=== PATIENT | female | born 1955 | race Two or more races ===

== ENCOUNTER 2018-05-21 06:02 | Inpatient (IN) | payer MEDICARE, OTHER ==
[2018-05-21] VITALS (14 sets, daily range): BP systolic 107–162; BP diastolic 54–78
[~2018-05-21] VITALS: Ht 162.6 cm; Wt 86.2 kg
[~2018-05-21 06:02] MED LIST: FEMARA2.5 MG ORAL; IBRANCE125 MG PO; SYNTHROID175 MCG ORAL
[2018-05-21] MEDS ORDERED: NeoSporin Gu Irrig 1ml Amp IRRIG ONE (07:01)
[2018-05-21] MEDS ORDERED: Bacitracin 50000 Units Vial ONE (07:01)
[2018-05-21] MEDS ORDERED: Lidocaine 1% MPF 10mg/ml 5ml ONE (07:15)
[2018-05-21] MEDS ORDERED: Propofol 200mg/20ml IV ONE (07:15)
[2018-05-21] MEDS ORDERED: Duramorph PF 5mg/10ml amp ONE (07:19)
[2018-05-21] MEDS ORDERED: Zemuron 50mg/5ml Inj IV ONE (07:19)
[2018-05-21] MEDS ORDERED: ePHEDrine 50mg/ml Inj ONE (07:23)
[2018-05-21] MEDS ORDERED: Phenylephrine 10mg/ml Vial ONE (07:23)
[2018-05-21] MEDS ORDERED: fentaNYL 100 mcg/2 mL IV ONE (07:25)
[2018-05-21] MEDS ORDERED: Midazolam 2mg/2ml Inj ONE (07:25)
--- NOTE | 2018-05-21 07:30 | Anethesia Preoperative Eval ---
Anesthesia Pre-op PMH/ROS General Date of Evaluation: May 21, 2018 Time of Evaluation: 07:25 Anesthesiologist: Janice Lin. 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 PROGRAM MANAGER ASA Score: ASA 2 Mallampati Score Class I : Soft palate, uvula, fauces, pillars visible Class II: Soft palate, uvula, fauces visible Class III: Soft palate, base of uvula visible Class IV: Only hard plate visible Mallampati Classification: Class II Surgeon: Hao Diagnosis: LEFT hip osteoarthritis Surgical Procedure: LEFT total hip replacement Anesthesia History: none Family History: no anesthesia problems Allergies: Coded Allergies: No Known Allergies (Unverified , 05/21/18) Patient NPO?: Yes NPO Date: May 19, 2018 NPO Time: 1999 Past Medical History Cardiovascular: Denies: HTN, CAD, NE, valve dz, arrhythmia, other Pulmonary: Denies: asthma, COPD, LESA, other Gastrointestinal/Genitourinary: Denies: GERD, CRI, ESRD, other Neurologic/Psychiatric: Denies: dementia, CVA, depression/anxiety, TIA, other Endocrine: Reports: hypothyroidism; Denies: DM, steroids, other HEENT: Denies: cataract (L), cataract (R), glaucoma, [place] (L), [place] (R), other Hematology/Immune: Denies: anemia, DVT, bleeding disorder, other Musculoskeletal/Integumentary: Reports: OA, other - Breast CA s/p mastectomy; Denies: RA, DJD, DDD, edema Other: obesity PMH Narrative: as noted above PSxH Narrative: thyroidectomy, RIGHT mastectomy, lap priscila Anesthesia Pre-op Phys. Exam Physician Exam Last Vital Signs Date Time Temp Pulse Resp B/P (MAP) Pulse Ox O2 Delivery O2 Flow Rate FiO2 05/21/18 06:30 Room Air 05/21/18 06:28 97.5 75 18 107/61 (76) 97 Constitutional: NAD Neurologic: other - alert & oriented Cardiovascular: RRR Respiratory: CTA Gastrointestinal: S/NT/ND Airway Exam Mallampati Score: Class II Neck: FROM TMD: > 3 FB ROM: full Teeth: intact Dentures: no upper, no lower Anesthesia Pre-op A/P Labs in chart, reviewed, T & C 2 units PRBC Studies Pre-op Studies: EKG - NSR Risk Assessment & Plan Assessment: ASA 2, ok to proceed Plan: GA, spinal Status Change Before Surgery: No Pre-Antibiotics Drug: Janice Stone CRNA May 21, 2018 07:30
--- NOTE | 2018-05-21 07:48 | Pre-Procedure Note/Attestation ---
Pre-Procedure Note/Attestation Complete Prior to Procedure Planned Procedure: left Procedure Narrative: left hip replacement Indications for Procedure Pre-Operative Diagnosis: left hip athritis Attestation I attest that I discussed the nature of the procedure; its benefits; risks and complications; and alternatives (and the risks and benefits of such alternatives ), prior to the procedure, with the patient (or the patient's legal representative phlebotomy services). I attest that, if there was a reasonable possibility of needing a blood transfusion, the patient (or the patient's legal representative phlebotomy services) was given the [facility] standardized written summary, pursuant to the [place] Blood Safety Act ([place] Health and Safety Code # 1645, as amended). I attest that I re-evaluated the patient just prior to the surgery and that there has been no change in the patient's H&P, except as documented below: Gregory Amanda MD May 21, 2018 07:48
--- NOTE | 2018-05-21 07:50 | Brief Operative Note ---
Immediate Post Operative Note Operative Note Chief Complaint: left hip pain Pre-op Diagnosis: left hip athritis Procedure: left hip replacemen Post-op Diagnosis: lefthip arthritis Post-op Diagnosis: same as pre-op Findings: consistent w/pre-op dx studies Surgeon: [place] Anesthesia: general Specimen: yes Complications: none Condition: stable Fluids: yes Implant(s) used?: Yes Gregory Amanda MD May 21, 2018 07:49
[2018-05-21] MEDS ORDERED: LR 1000ml ONE (08:00)
[2018-05-21] MEDS ORDERED: NS Irrig 2000ml IRRIG ONE ×2 (08:00)
[2018-05-21] MEDS ORDERED: Sterile Water Irrig 1000ml IRRIG ONE (08:00)
[2018-05-21] MEDS ORDERED: Tranexamic Acid 1,000 MG in NS 65 ML IV ONE (08:30)
[2018-05-21] MEDS ORDERED: Metoclopramide 10mg/2ml Inj ONE (09:10)
[2018-05-21] MEDS ORDERED: DiphenhydrAMINE 50mg/ml Inj IVP PRN (09:30)
[2018-05-21] MEDS ORDERED: Hydromorphone 0.5mg/0.5ml inj IVP PRN (09:30)
--- NOTE | 2018-05-21 10:12 | Immediate Post-Op Evaluation ---
Immediate Post-Op Evalulation Immediate Post-Op Evalulation Procedure: LEFT total hip replacement Date of Evaluation: May 21, 2018 Time of Evaluation: 09:55 IV Fluids: LR 2000 ml Estimated Blood Loss: 300 ml Urinary Output: 150 ml Blood Pressure Systolic: 153 Blood Pressure Diastolic: 76 Pulse Rate: 82 Respiratory Rate: 22 O2 Sat by Pulse Oximetry: 100 Temperature (Fahrenheit): 97.3 Pain Score (1-10): 2 Nausea: No Vomiting: No Complications none Patient Status: awake, reacts, patent, extubated Hydration Status: adequate Drug: cefazolin Given Within 1 Hr of Incision: Yes Time Given: 08:25 Janice Lin CRNA May 21, 2018 10:12
--- NOTE | 2018-05-21 11:40 | NUR ---
NURSE NOTES: Patient arrived on unit via hospital bed. Patient is awake and able to verbalize needs. Stable and denies pain or SOB. Daughter is at bedside. IV patent, no s/s infiltration or phlebitis noted. Patient is on room air, 97% oxygen saturation. Patient is encouraged to use call light for assistance, verbalized understanding. Surgical site clean, dry, and intact. All belongings accounted for. Abduction pillow in place. Oriented to room, call light, and unit. Plan of care discussed with patient. Patient is in good spirits, all safety measures provided. Will continue to monitor.
[2018-05-21] MEDS: D5 1/2NS w/KCl 20mEq 1,000 ML IV SCH (13:38)
--- NOTE | 2018-05-21 14:02 | Diagnostic Imaging Report ---
Indication: Hip and pelvic pain Technique: One view of the pelvis, 2 views of the left hip Comparison: none Findings: There is marked degenerative change of the left hip joint, with complete obliteration of the joint space, subchondral sclerosis, subchondral cysts, and remodeling of both the acetabulum and the femoral head. No acute fractures. No dislocations. The right hip joint appears unremarkable. Impression: Severe left hip degenerative change, as described
--- NOTE | 2018-05-21 15:00 | NUR ---
NURSE NOTES: Left [address] Vidal regarding home meds. Awaiting response. Will continue to monitor.
--- NOTE | 2018-05-21 19:26 | NUR ---
HAND-OFF: Report given to Sin STEVENS. Patient is stable.
--- NOTE | 2018-05-21 19:36 | Cardiology Progress Note ---
Subjective Subjective [id number] dvt xareltio 10 mg daily as of [facility]bc first d/w with dr morton who is agreeable Objective Last 24 Hour Vital Signs Date Time Temp Pulse Resp B/P (MAP) Pulse Ox O2 Delivery O2 Flow Rate FiO2 05/21/18 16:00 97.5 71 19 115/60 (78) 98 05/21/18 12:40 97.7 65 18 112/54 (73) 95 05/21/18 11:40 97.7 84 18 109/74 (86) 97 05/21/18 11:30 97.5 73 18 130/62 97 Room Air 05/21/18 11:15 72 17 129/61 97 Room Air 05/21/18 11:00 97.4 71 18 128/60 98 Room Air 05/21/18 10:45 77 19 131/67 97 Room Air 05/21/18 10:30 78 20 140/68 98 Room Air 05/21/18 10:15 78 20 138/66 100 Simple Mask 6.0 05/21/18 10:12 82 22 100 05/21/18 10:05 79 19 162/67 100 Simple Mask 6.0 05/21/18 10:00 81 20 143/78 100 Simple Mask 6.0 05/21/18 09:55 97.3 82 22 153/76 100 Simple Mask 6.0 05/21/18 06:30 Room Air 05/21/18 06:28 97.5 75 18 107/61 (76) 97 Intake and Output 05/20/18 05/21/18 19:00 07:00 # Voids 1 Donald Vidal MD May 21, 2018 19:35
--- NOTE | 2018-05-21 20:05 | NUR ---
NURSE NOTES: Patient in bed awake and oriented. VSS. No SOB noted. Dressing is dry and intact with abduction pillows in place. Elias catheter draining well. IV site intact and able to tolerate IV fluids. Per patient no pain at this time. RT called for IS. Per Dr. Vidal hold home meds. No signs of distress noted. Needs attended. Call light within reach. In stable condition.
[2018-05-21 21:00] LABS: HEMOGLOBIN 10.5 G/DL (12.0-16.0); MEAN CORPUSCULAR VOLUME 92 FL (80-99); PLATELET COUNT 214 K/UL (150-450); RED BLOOD COUNT 3.48 M/UL (4.20-5.40); RED CELL DISTRIBUTION WIDTH 11.8 % (11.6-14.8); WHITE BLOOD COUNT 9.7 K/UL (4.8-10.8)
[2018-05-21] MEDS: HYDROcodone/Acetamin 10/325 tab ORAL PRN (23:15)
[2018-05-22] VITALS: BP 99/57
--- NOTE | 2018-05-22 00:30 | Consultation ---
DATE OF CONSULTATION: 05/21/2018 REFERRING PHYSICIAN: Gregory Amanda M.D. REASON FOR REFERRAL: Postoperative medical care. HISTORY OF PRESENT ILLNESS: This is a 62-year-old female who has a history of multiple medical problems as delineated below. The patient was admitted and has undergone a total knee replacement by Dr. Bui. I was asked to help manage postoperative medical care. The patient does not have any sore throat. Does not have any chest pain or shortness of breath. No PND. No orthopnea. Not had any orthopnea at home. No dyspnea on exertion. No palpitation. No dizziness on standing. She has not stood up postoperatively. She has been awake and responsive. PAST MEDICAL HISTORY: Positive for hypothyroidism, history of neoplasm of the breast on the right side. 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 Those medications have been withheld prior to the surgery and to be resumed after surgery. No diabetes. No high blood pressure. No history of heart attack. No stroke, hepatitis, tuberculosis, asthma, or emphysema. No ulcers. No kidney problems or liver problems. Only prior surgery has been mastectomy. SOCIAL HISTORY: She does not smoke or drink. Never did drug use. ALLERGIES: None. MEDICATIONS: Vitamin C, calcium carbonate, ferrous sulfate, vitamin D2, levothyroxine, letrozole, as part of her chemotherapy for her sacral lesion and those have been on hold, and [place]. REVIEW OF SYSTEMS: GASTROINTESTINAL: Negative. : She has a Elias catheter. PULMONARY: Denies. CONSTITUTIONAL: Denies. NEUROVASCULAR: Negative. PHYSICAL EXAMINATION: GENERAL: Shows to be a middle-aged female, in no respiratory distress. NECK: Supple. LUNGS: Clear to auscultation and percussion. CARDIAC: Showed S1 is normal. S2 is normal. Regular rate and rhythm. No heaves, thrills, gallops, or rubs are noted. ABDOMEN: Soft, obese, positive bowel sounds. EXTREMITIES: No edema. She has pneumatic compression stockings on the right with acute distress. No significant edema. NEUROLOGICAL: She is awake, alert, and responsive. LABS: No postoperative laboratories are available and her preop laboratories in the chart were reviewed with a glucose of 87, creatinine 0.73. INR 0.9. White count 3.2, hemoglobin 12.4, and platelet count 271. Urinalysis is fairly unremarkable. She has 2+ leukocyte esterase, 0-2 WBCs were noted. EKG, sinus rhythm. ASSESSMENT AND PLAN: 1. Status post hip replacement. 2. History of breast cancer. 3. History of coccygeal cancer of some kind. 4. Obesity. 5. Hypothyroidism. 6. This patient was seen in medical consultation. The patient is doing relatively well postoperatively. Incentive spirometer will be introduced. The patient to be receiving DVT prophylaxis with the use of ykv-nmzpnqmoe-quqdxu heparin. Relatively well postoperatively, hemodynamically she appears to be stable. Incentive spirometer to be used. DVT prophylaxis with the use of Xarelto at 10 mg daily for 35 days, to be started 10 hours post hemostasis. We will discuss timing of the start of that medication with Dr. Bui today, but hopefully by tomorrow she should be able to start on that medication if agreeable with Dr. Bui. She should be ambulating as allowed. Elias catheter will soon be removed tomorrow and the patient will be likely able to be discharged home over the next 2 to 3 days. Donald Vidal M.D. DR: Kael JOB#: [id number] CC:
[2018-05-22] MEDS: D5 1/2NS w/KCl 20mEq 1,000 ML IV SCH ×2 (02:36→16:50)
[2018-05-22] MEDS: Morphine Sulfate 2mg/ml Inj(IV/IM USE ONLY) IM PRN ×3 (06:20→18:50)
--- NOTE | 2018-05-22 06:59 | NUR ---
NURSE NOTES: Patient slept well during the night. Assisted patient to sit on the edge of the bed. Also ambulated on the room and the hallway using a FWW with RN assist. PRN pain medication given for 8/10 surgical pain. Assisted patient back to bed and placed Abduction pillow back in place. Patient in stable condition.
--- NOTE | 2018-05-22 07:15 | NUR ---
NURSE NOTES: Patient is asleep but arousable to verbal stimuli. Stable, denies pain or SOB. Patient encouraged to use call light for assistance. Abduction pillow in place. All needs met at this time. Patient comfortable in bed with call light within reach. Will continue to monitor.
[2018-05-22 08:00] VITALS: BP 107/59
--- NOTE | 2018-05-22 09:00 | NUR ---
NURSE NOTES: Reported lab values to Dr. Vidal. Ok to give gavi.
[2018-05-22 09:08] LABS: BASOPHILS % (AUTO) 0.3 % (0.0-2.0); EOSINOPHILS % (AUTO) 0.1 % (0.0-3.0); HEMATOCRIT 31.1 % (37.0-47.0); HEMOGLOBIN 10.2 G/DL (12.0-16.0); MEAN CORPUSCULAR VOLUME 93 FL (80-99); MONOCYTES % (AUTO) 9.2 % (1.0-10.0); NEUTROPHILS % (AUTO) 78.4 % (45.0-75.0); PLATELET COUNT 183 K/UL (150-450); RED BLOOD COUNT 3.34 M/UL (4.20-5.40); RED CELL DISTRIBUTION WIDTH 11.9 % (11.6-14.8); WHITE BLOOD COUNT 7.4 K/UL (4.8-10.8)
[2018-05-22 09:23] LABS: ANION GAP 5 mmol/L (5-15); BLOOD UREA NITROGEN 12 mg/dL (7-18); CALCIUM 8.1 MG/DL (8.5-10.1); CARBON DIOXIDE 29 MMOL/L (21-32); CHLORIDE 104 MMOL/L (98-107); CREATININE 0.8 MG/DL (0.55-1.30); POTASSIUM 4.6 MMOL/L (3.5-5.1); SODIUM 138 MMOL/L (136-145)
[2018-05-22] MEDS: Xarelto 10mg tab ORAL SCH (09:23)
[2018-05-22] MEDS ORDERED: Chloraseptic Spray 20mL Bottle ORAL PRN (09:45)
--- NOTE | 2018-05-22 09:52 | 48 Hour Post Anesthesia Eval ---
Post Anesthesia Evaluation Procedure: LEFT total hip replacement Date of Evaluation: May 22, 2018 Time of Evaluation: 09:51 Blood Pressure Systolic: 104 0: 72 Pulse Rate: 68 Respiratory Rate: 20 Temperature (Fahrenheit): 97.6 O2 Sat by Pulse Oximetry: 98 Airway: patent Nausea: No Vomiting: No Pain Intensity: 2 Hydration Status: adequate Cardiopulmonary Status: stable Mental Status/LOC: patient returned to baseline Follow-up Care/Observations: n/a Post-Anesthesia Complications: none Follow-up care needed: N/A Matt Pang MD May 22, 2018 09:52
[2018-05-22] MEDS: HYDROcodone/Acetamin 10/325 tab ORAL PRN (10:43)
[2018-05-22 12:00] VITALS: BP 114/60
--- NOTE | 2018-05-22 12:45 | Consultation ---
DATE OF CONSULTATION: 05/22/2018 CONSULTING PHYSICIAN: Boni Fernandez M.D. REFERRING PHYSICIAN: Gregory Amanda M.D. REASON FOR CONSULTATION: Acute pain consult. HISTORY OF PRESENT ILLNESS: Dear Dr. Amanda: Thank you kindly for consulting me to evaluate and render an opinion as to how to proceed in the management of the patient's acute postoperative left hip pain. The patient is a 62-year-old woman, who underwent left total hip replacement yesterday. She complained of significant left hip pain and consulted me for acute pain consultation. I saw the patient at the bedside this morning. I performed detailed history and physical examination. PAST MEDICAL HISTORY: 1. Acute postoperative left hip pain, status post left total hip arthroplasty by Dr. Gregory Amanda, in May 2018. 2. History of breast and pelvic bone cancer. 3. Obesity. 4. Hypothyroidism. 5. Chronic constipation. PAST SURGICAL HISTORY: Right breast surgery 2013. SOCIAL HISTORY: The patient denies tobacco, alcohol, or illicit drug use. ALLERGIES: No known drug allergies. MEDICATIONS: At home, Femara, Synthroid, and Ibrance. REVIEW OF SYSTEMS: Per Dr. Vidal. FAMILY HISTORY: . PHYSICAL EXAMINATION: VITAL SIGNS: Age 62, height 5 feet 3 inches, weight 194 pounds, body mass index 34. HEENT: Normocephalic and atraumatic. CHEST: Clear to auscultation. HEART: Regular rate and rhythm. ABDOMEN: Obese. Positive bowel sounds. EXTREMITIES: Left hip with dry dressing. Pain with range of motion. Moving all toes x10. Moving all extremities x4. BREASTS: Deferred per Dr. Vidal. GENITOURINARY: Deferred per Dr. Vidal. LABORATORY AND DIAGNOSTIC DATA: Diagnostic testing shows laboratory from this morning, May 22, 2018, white count 7, hematocrit 31, platelets 183. Sodium 138, potassium 4.6, chloride 104, bicarb 29, BUN 12, creatinine 0.8, glucose , calcium 8.1. IMPRESSION: 1. Acute postoperative left knee pain, status post left total hip arthroplasty by Dr. Gregory Amanda, in 2017. 2. History of breast and pelvic bone cancer. 3. Obesity. 4. Hypothyroidism. 5. Chronic constipation. TREATMENT RECOMMENDATIONS: I spoke with the hospital pharmacist, Eliana, along with the floor nurse RN, Charisse. I devised the following analgesic plan to help improve the patient's pain complaints. I will start the patient on morphine 3 mg intramuscular every three hours p.r.n. for pain level 6 to 10. I ordered Iselin 10/325 one tablet orally every three hours for pain 1 to 5. I have left a prescription for 60 tablets of Iselin for outpatient usage. The patient does not appear to be anxious. I will hold off on the class of benzodiazepines at this time to avoid potentiation of respiratory depression. I have ordered Pepcid 20 mg b.i.d. for GI ulcer prophylaxis along with a p.r.n. dose of Mylanta 30 mL q.6 h. in case of any GERD symptom exacerbation. I have ordered Zofran 4 mg intravenously every four hours p.r.n. for nausea symptoms. I have ordered Dulcolax suppository as a rescue laxative. I also have asked the nursing team to place prune juice at the bedside. The patient does use plum juice at home for her chronic constipation. I have ordered clonidine 0.1 mg orally every eight hours in case of systolic blood pressure greater than 160 mmHg. I have ordered Benadryl 25 mg orally every six hours in case of itching complaints. I counseled the patient on aggressive incentive spirometer usage due to her obesity to avoid postoperative pneumonia and atelectasis. Dr. Amanda has appropriately placed the patient on chemical anticoagulation with Xarelto 10 mg daily along with mechanical prophylaxis with sequential compression pneumatic devices. Boni Fernandez M.D. DR: BILLIE JOB#: [id number] CC:
--- NOTE | 2018-05-22 13:22 | NUR ---
CASE MANAGEMENT:INITIAL REVIEW 62 YO F PRESENTED FOR SURGERY SI:UNILATERAL PRIMARY OA. T 97.5 HR 75 RR 18 B/P 107/61 SATS 97% ON RA GLU 156 CA 8.1 IS: IVF @ 75 mL/HR PEPCID PO BID XARELTO PO QD NORCO PO Q3H PRN ADMITTED TO MED/SURG 05/21/2018 @ 0750 DCP: PATIENT TO BE DISCHARGED TO HOME ONCE MEDICALLY CLEARED. PLAN OF CARE: Pre-Operative Diagnosis: left hip arthritis Procedure Narrative: left hip replacement Addendum: 05/22/18 at 1643 by Nolvia Burns CM [employer]
[2018-05-22 16:00] VITALS: BP 118/68
--- NOTE | 2018-05-22 19:30 | NUR ---
HAND-OFF: Report given to Sin STEVENS. Patient stable.
[2018-05-22 20:00] VITALS: BP 119/59
--- NOTE | 2018-05-22 20:52 | NUR ---
NURSE NOTES: patient recvd from dayshift nurse; patient is asleep resting in bed; semi morrison position; VSS; IV fluid running pt tolerating well; abduction pillow in place; bed is locked and at low position; bedside table and call light are with in reach.
[2018-05-23] VITALS (7 sets, daily range): BP systolic 97–123; BP diastolic 65–72
[2018-05-23] MEDS: Morphine Sulfate 2mg/ml Inj(IV/IM USE ONLY) IM PRN ×3 (00:54→11:59)
[2018-05-23] MEDS: D5 1/2NS w/KCl 20mEq 1,000 ML IV SCH ×2 (05:15→17:47)
[2018-05-23] MEDS: HYDROcodone/Acetamin 10/325 tab ORAL PRN (07:12)
--- NOTE | 2018-05-23 07:30 | NUR ---
HAND-OFF: Report given to Dago STEVENS.
--- NOTE | 2018-05-23 07:36 | NUR ---
NURSE NOTES: received report from RODNEY barroso. patient in bed. AOx4. IV LH 18&20g fluid running. no respiratory distress noted. no c/o pain at this time. bed in the lowest position. call light within reach. will continue to monitor.
[2018-05-23] MEDS: Docusate 100mg/10ml Liq ORAL SCH ×2 (09:03→17:44)
[2018-05-23] MEDS: Sennosides 8.6mg tab ORAL SCH (09:03)
[2018-05-23] MEDS: Xarelto 10mg tab ORAL SCH (09:04)
[2018-05-23 09:23] LABS: EOSINOPHILS % (AUTO) 0.5 % (0.0-3.0); HEMATOCRIT 30.9 % (37.0-47.0); HEMOGLOBIN 10.1 G/DL (12.0-16.0); LYMPHOCYTES % (AUTO) 14.4 % (20.0-45.0); MEAN CORPUSCULAR VOLUME 93 FL (80-99); NEUTROPHILS % (AUTO) 73.2 % (45.0-75.0); PLATELET COUNT 180 K/UL (150-450); RED BLOOD COUNT 3.32 M/UL (4.20-5.40); RED CELL DISTRIBUTION WIDTH 11.6 % (11.6-14.8); WHITE BLOOD COUNT 6.9 K/UL (4.8-10.8)
[2018-05-23 09:37] LABS: ANION GAP 7 mmol/L (5-15); BLOOD UREA NITROGEN 7 mg/dL (7-18); CALCIUM 7.9 MG/DL (8.5-10.1); CARBON DIOXIDE 28 MMOL/L (21-32); CHLORIDE 102 MMOL/L (98-107); CREATININE 0.7 MG/DL (0.55-1.30); POTASSIUM 3.6 MMOL/L (3.5-5.1); SODIUM 137 MMOL/L (136-145)
--- NOTE | 2018-05-23 15:00 | NUR ---
NURSE NOTES: Spoke to regarding PT order and new order received. Order read back and carried out.
--- NOTE | 2018-05-23 15:07 | Cardiology Progress Note ---
Assessment/Plan Status: stable, progressing Status Narrative s/p L hip replacement hx of hypothyroidism Assessment/Plan Continue xarelto 10 mg /d for dvt prevention. Follow h/h analgesics prn Per chart, pt w/ hx of hypothyroidism. However, not on supplement. Will check TFTs in am Subjective ROS Limited/Unobtainable: No Subjective Cardiology for Dr. Vidal Pt w/ hip pain. no c/o dyspnea, cp Objective Last 24 Hour Vital Signs Date Time Temp Pulse Resp B/P (MAP) Pulse Ox O2 Delivery O2 Flow Rate FiO2 05/23/18 12:00 99.4 79 18 122/68 (86) 96 05/23/18 09:00 Room Air 05/23/18 08:00 99.2 93 18 97/69 (78) 93 05/23/18 04:00 99.4 89 18 114/65 (81) 97 05/23/18 00:00 99.4 86 16 122/70 (87) 97 05/22/18 21:00 Room Air 05/22/18 20:00 100.2 82 18 119/59 (79) 98 05/22/18 16:00 98.7 80 18 118/68 (85) 96 General Appearance: WD/WN, no apparent distress EENT: PERRL/EOMI Neck: supple, no JVD Cardiovascular: normal rate, regular rhythm, no gallop/murmur Respiratory/Chest: lungs clear Abdomen: non tender, soft Extremities: no swelling Intake and Output 05/22/18 05/23/18 18:59 06:59 Intake Total 750 ml Balance 750 ml Intake IV Total 750 ml Laboratory Tests Test 05/23/18 08:40 White Blood Count 6.9 K/UL (4.8-10.8) Red Blood Count 3.32 M/UL (4.20-5.40) L Hemoglobin 10.1 G/DL (12.0-16.0) L Hematocrit 30.9 % (37.0-47.0) L Mean Corpuscular Volume 93 FL (80-99) Mean Corpuscular Hemoglobin 30.3 PG (27.0-31.0) Mean Corpuscular Hemoglobin Concent 32.6 G/DL (32.0-36.0) Red Cell Distribution Width 11.6 % (11.6-14.8) Platelet Count 180 K/UL (150-450) Mean Platelet Volume 6.6 FL (6.5-10.1) Neutrophils (%) (Auto) 73.2 % (45.0-75.0) Lymphocytes (%) (Auto) 14.4 % (20.0-45.0) L Monocytes (%) (Auto) 11.0 % (1.0-10.0) H Eosinophils (%) (Auto) 0.5 % (0.0-3.0) Basophils (%) (Auto) 1.0 % (0.0-2.0) Sodium Level 137 MMOL/L (136-145) Potassium Level 3.6 MMOL/L (3.5-5.1) Chloride Level 102 MMOL/L (98-107) Carbon Dioxide Level 28 MMOL/L (21-32) Anion Gap 7 mmol/L (5-15) Blood Urea Nitrogen 7 mg/dL (7-18) Creatinine 0.7 MG/DL (0.55-1.30) Estimat Glomerular Filtration Rate > 60 mL/min (>60) Glucose Level 146 MG/DL (74-106) H Calcium Level 7.9 MG/DL (8.5-10.1) L Microbiology Date/Time Source Procedure Growth Status 05/21/18 06:50 Nasal Nares MRSA Culture - Final NO METHICILLIN RESISTANT STAPH AUREUS... Complete Eliana Bailey MD May 23, 2018 15:07
[2018-05-23] MEDS: Morphine Sulfate 2mg/ml Inj(IV/IM USE ONLY) IVP PRN ×2 (15:08→23:53)
--- NOTE | 2018-05-23 16:00 | Progress Note ---
DATE: 05/23/2018 ACUTE PAIN MANAGEMENT PHYSICIAN PROGRESS NOTE MEDICATIONS: Medication administration record reviewed. Medications include IV fluids, Pepcid, and Xarelto. P.r.n. medications include [place], morphine, Benadryl, Narcan, Zofran, Catapres, Mylanta, Dulcolax, and Chloraseptic spray. LABORATORY STUDIES: From yesterday, 05/22/2018, shows white count 7, hematocrit 31, and platelets 183,000. OBJECTIVE: VITAL SIGNS: Within normal limits. Afebrile, pulse 89, respirations 18, blood pressure 114/65, and oxygen saturation 97% on room air. I saw the patient at bedside. I discussed the case with the nurse RN, Sin. The patient continues to have a limited oral intake. So, we will continue the IV fluids for now. She denies any nausea symptoms. There are snacks including Coca-Cola and potentiate at the bedside table. So, hopefully the patient is increasing her diet intake. The patient has been alternating the intramuscular morphine. I did encourage usage of the oral [place]. The patient states that her pain is significant, but tolerable on her current analgesic regimen. I would continue the current analgesic plan. She will continue physical therapy training. The patient will continue with Xarelto for chemical anticoagulation and DVT prophylaxis. Now, the patient is more ambulatory, I will add Colace and Senokot to help with bowel regularity. A p.r.n. dose of Dulcolax is available. The patient is compliant using her incentive spirometer. I did leave a prescription for [place] for outpatient usage. I will defer to Dr. Bui for hip dressing change. Boni Fernandez M.D. DR: Bala JOB#: [id number] CC:
--- NOTE | 2018-05-23 16:05 | NUR ---
PT Note PT vitor completed, treatment initiated. Patient was instructed on THR precautions. She c/o increased pain on weight bearing. Patient needs PT services to increase her muscle strength to improve her functional mobility and gait to enable her to return home. Addendum: 05/23/18 at 1605 by INESSA MARMOLEJO PT Amended: Links added.
--- NOTE | 2018-05-23 19:16 | NUR ---
HAND-OFF: Report given to RODNEY Dempsey.
--- NOTE | 2018-05-23 19:22 | NUR ---
NURSE NOTES: Received patient in bed, AOx4. IV LH [address], running IV fluids. No s/s respiratory distress noted. No complaints of pain at this time. bed in the lowest position. call light within reach. will continue to monitor.
--- NOTE | 2018-05-23 22:00 | NUR ---
NURSE NOTES: PATIENT REQUESTED TO HAVE IV FLUIDS OFF FOR A WHILE. PATIENT TOLERATING ORAL FLUIDS.
[2018-05-24 04:45] VITALS: BP 122/68
--- NOTE | 2018-05-24 05:00 | NUR ---
NURSE NOTES: PATIENT IN BED, ASLEEP, V/S STABLE, NO DISTRESS.
--- NOTE | 2018-05-24 07:30 | NUR ---
NURSE NOTES: Patient is in bed awake and able to verbalize needs. Patient is stable with no s/s acute distress. Denies pain at this time. abduction pillow in place. Patient encouraged to use call light for assistance, verbalized understanding. Plan of care discussed with patient. Patient is in good spirits with call light within reach. WIll continue to monitor.
--- NOTE | 2018-05-24 07:31 | NUR ---
HAND-OFF: Report given to RADHA TOSCANO RN.
[2018-05-24] MEDS: D5 1/2NS w/KCl 20mEq 1,000 ML IV SCH (07:40)
[2018-05-24 07:53] LABS: BASOPHILS % (AUTO) 0.9 % (0.0-2.0); EOSINOPHILS % (AUTO) 2.6 % (0.0-3.0); HEMATOCRIT 31.8 % (37.0-47.0); HEMOGLOBIN 10.5 G/DL (12.0-16.0); LYMPHOCYTES % (AUTO) 22.3 % (20.0-45.0); MEAN CORPUSCULAR VOLUME 92 FL (80-99); MONOCYTES % (AUTO) 6.7 % (1.0-10.0); NEUTROPHILS % (AUTO) 67.5 % (45.0-75.0); PLATELET COUNT 187 K/UL (150-450); RED BLOOD COUNT 3.44 M/UL (4.20-5.40); RED CELL DISTRIBUTION WIDTH 11.9 % (11.6-14.8); WHITE BLOOD COUNT 6.2 K/UL (4.8-10.8)
[2018-05-24 08:00] VITALS: BP 104/66
--- NOTE | 2018-05-24 08:19 | NUR ---
CASE MANAGEMENT:REVIEW 05/24/18 SI: POD #3 S/P LT HIP REPLACEMENT 98.7 85 18 122/68 94% ON RA H/H-10.5/31.8 IS: IV MORPHINE Q3HRS PEPCID PO BID XARELTO PO QD IVF@75/HR : MED/SURG STATUS 3 [facility] [place] PLAN: PHYSICAL THERAPY EVAL AND TREATMENT
[2018-05-24 08:39] LABS: ANION GAP 6 mmol/L (5-15); BLOOD UREA NITROGEN 9 mg/dL (7-18); CALCIUM 8.5 MG/DL (8.5-10.1); CARBON DIOXIDE 30 MMOL/L (21-32); CHLORIDE 103 MMOL/L (98-107); CREATININE 0.8 MG/DL (0.55-1.30); SODIUM 139 MMOL/L (136-145)
[2018-05-24] MEDS: Docusate 100mg/10ml Liq ORAL SCH (08:49)
[2018-05-24] MEDS: Sennosides 8.6mg tab ORAL SCH (08:49)
[2018-05-24] MEDS: Xarelto 10mg tab ORAL SCH (08:50)
[2018-05-24] MEDS: Morphine Sulfate 2mg/ml Inj(IV/IM USE ONLY) IVP PRN ×2 (09:50→16:46)
[2018-05-24 12:00] VITALS: BP 99/73
[2018-05-24 16:00] VITALS: BP 110/64
[2018-05-24] MEDS: Docusate 100mg cap ORAL SCH (18:10)
--- NOTE | 2018-05-24 19:35 | NUR ---
HAND-OFF: Report given to Jeannette STEVENS. Patient is stable. D/c senna as ordered after pt had bm today.
--- NOTE | 2018-05-24 19:36 | NUR ---
NURSE NOTES: Received report & pt from RODNEY Mcqueen. Pt lying in bed, a&ox4, in room air. No s/s of acute distress & no c/o pain at this time. Surgical dressing C/D/I, abduction pillow on. IV site intact & S/L'd. Bed in lowest position, call light within reach. Will continue to monitor.
[2018-05-24 20:00] VITALS: BP 114/78
--- NOTE | 2018-05-24 20:59 | Cardiology Progress Note ---
Assessment/Plan Assessment/Plan 1. Status post hip replacement. 2. History of breast cancer. 3. History of coccygeal cancer of some kind. 4. Obesity. 5. Hypothyroidism. doign well dc ivf dvt ppx xarelto ambualtin home in am messageleft for dr morton Subjective Cardiovascular: Denies: chest pain, irregular heart rate, lightheadedness Respiratory: Denies: shortness of breath Gastrointestinal/Abdominal: Denies: abdominal pain Genitourinary: Denies: burning Objective Last 24 Hour Vital Signs Date Time Temp Pulse Resp B/P (MAP) Pulse Ox O2 Delivery O2 Flow Rate FiO2 05/24/18 16:00 98.6 95 18 110/64 (79) 96 05/24/18 12:00 99.5 99 19 99/73 (82) 97 05/24/18 09:00 Room Air 05/24/18 08:00 98.5 102 20 104/66 (79) 95 05/24/18 04:45 98.7 85 18 122/68 (86) 94 05/24/18 00:23 99.3 05/23/18 23:32 99.3 91 18 123/70 (87) 94 General Appearance: no apparent distress, alert Neck: supple Cardiovascular: normal rate, regular rhythm Respiratory/Chest: lungs clear, normal breath sounds Abdomen: normal bowel sounds, non tender, soft Extremities: no swelling, other - dressing dry adn clean Intake and Output 05/23/18 05/24/18 18:59 06:59 Intake Total 975 ml 675 ml Balance 975 ml 675 ml IV Total 975 ml 675 ml # Voids 3 Laboratory Tests Test 05/24/18 05:33 White Blood Count 6.2 K/UL (4.8-10.8) Red Blood Count 3.44 M/UL (4.20-5.40) L Hemoglobin 10.5 G/DL (12.0-16.0) L Hematocrit 31.8 % (37.0-47.0) L Mean Corpuscular Volume 92 FL (80-99) Mean Corpuscular Hemoglobin 30.4 PG (27.0-31.0) Mean Corpuscular Hemoglobin Concent 33.0 G/DL (32.0-36.0) Red Cell Distribution Width 11.9 % (11.6-14.8) Platelet Count 187 K/UL (150-450) Mean Platelet Volume 6.4 FL (6.5-10.1) L Neutrophils (%) (Auto) 67.5 % (45.0-75.0) Lymphocytes (%) (Auto) 22.3 % (20.0-45.0) Monocytes (%) (Auto) 6.7 % (1.0-10.0) Eosinophils (%) (Auto) 2.6 % (0.0-3.0) Basophils (%) (Auto) 0.9 % (0.0-2.0) Sodium Level 139 MMOL/L (136-145) Potassium Level 4.0 MMOL/L (3.5-5.1) Chloride Level 103 MMOL/L (98-107) Carbon Dioxide Level 30 MMOL/L (21-32) Anion Gap 6 mmol/L (5-15) Blood Urea Nitrogen 9 mg/dL (7-18) Creatinine 0.8 MG/DL (0.55-1.30) Estimat Glomerular Filtration Rate > 60 mL/min (>60) Glucose Level 108 MG/DL (74-106) H Calcium Level 8.5 MG/DL (8.5-10.1) Thyroid Stimulating Hormone (TSH) 10.515 uiU/mL (0.358-3.740) Free Thyroxine 0.91 NG/DL (0.76-1.46) Donald Vidal MD May 24, 2018 20:59
[2018-05-24] MEDS: HYDROcodone/Acetamin 10/325 tab ORAL PRN (22:21)
[2018-05-25] VITALS: BP 105/66
[2018-05-25 04:00] VITALS: BP 102/67
--- NOTE | 2018-05-25 06:42 | NUR ---
NURSE NOTES: Pt's IV was out & pt refused IV start. Informed Dr. Vidal. Addendum: 05/25/18 at 0705 by Jeannette Jarquin RN Dr. Vidal said, "ok keep out"
[2018-05-25 06:51] LABS: BASOPHILS % (AUTO) 1.1 % (0.0-2.0); HEMATOCRIT 31.1 % (37.0-47.0); LYMPHOCYTES % (AUTO) 23.1 % (20.0-45.0); MEAN CORPUSCULAR VOLUME 92 FL (80-99); MONOCYTES % (AUTO) 10.4 % (1.0-10.0); NEUTROPHILS % (AUTO) 59.5 % (45.0-75.0); PLATELET COUNT 229 K/UL (150-450); RED BLOOD COUNT 3.37 M/UL (4.20-5.40); RED CELL DISTRIBUTION WIDTH 11.9 % (11.6-14.8); WHITE BLOOD COUNT 6.2 K/UL (4.8-10.8)
--- NOTE | 2018-05-25 07:30 | NUR ---
HAND-OFF: Report given to RODNEY Krueger.
--- NOTE | 2018-05-25 07:52 | NUR ---
NURSE NOTES: WALKING ROUNDS DONE WITH OUTGOING RN. PATIENT AWAKE IN CHAIR. LEFT HIP SURGICAL DRSG C/D/I. CMS WNL. PAIN CONTROLLED WITH PO ANALGESICS. DISCUSSED PLAN OF CARE FOR THE DAY. QUESTIONS ANSWERED, NEEDS MET. CALL LIGHT WITHIN REACH.
[2018-05-25 08:00] VITALS: BP 121/73
[2018-05-25] MEDS: Docusate 100mg cap ORAL SCH (08:38)
[2018-05-25] MEDS: Xarelto 10mg tab ORAL SCH (08:39)
--- NOTE | 2018-05-25 10:51 | NUR ---
DISCHARGE PLANNING PLAN IS FOR PATIENT TO DISCHARGE HOME [id number] [place] [id number] [facility] HAS BEEN PLACED ON WILL CALL NURSE CAN ACTIVATE WILL CALL BY DIALING [id number]
--- NOTE | 2018-05-25 11:25 | General Progress Note ---
Progress Note Progress Note [id number] great incision clear ambuklating well continue therapy Gregory Amanda MD May 25, 2018 11:25
--- NOTE | 2018-05-25 11:26 | Cardiology Progress Note ---
Assessment/Plan Assessment/Plan 1. Status post hip replacement. 2. History of breast cancer. 3. History of coccygeal cancer of some kind. 4. Obesity. 5. Hypothyroidism. doign well off ivf dvt ppx xarelto explained to pt to taek daily for 30 days post hip replacement ambualting home today after seen by dr motron dressing dry adn clean Subjective Cardiovascular: Denies: chest pain, lightheadedness, palpitations Respiratory: Denies: shortness of breath Gastrointestinal/Abdominal: Denies: abdominal pain, constipated Genitourinary: Denies: burning Objective Last 24 Hour Vital Signs Date Time Temp Pulse Resp B/P (MAP) Pulse Ox O2 Delivery O2 Flow Rate FiO2 05/25/18 09:00 Room Air 05/25/18 08:00 99.5 102 17 121/73 (89) 96 05/25/18 04:00 98.7 81 18 102/67 (79) 97 05/25/18 00:00 98.8 85 18 105/66 (79) 96 05/24/18 21:00 Room Air 05/24/18 20:00 100.0 95 18 114/78 (90) 97 05/24/18 16:00 98.6 95 18 110/64 (79) 96 05/24/18 12:00 99.5 99 19 99/73 (82) 97 General Appearance: no apparent distress, alert Neck: supple Cardiovascular: normal rate, regular rhythm Respiratory/Chest: lungs clear, normal breath sounds Abdomen: normal bowel sounds, non tender, soft Extremities: no swelling Intake and Output 05/24/18 05/25/18 19:00 07:00 Intake Total 300 ml Balance 300 ml Intake Oral 300 ml # Voids 2 3 Laboratory Tests Test 05/25/18 05:10 White Blood Count 6.2 K/UL (4.8-10.8) Red Blood Count 3.37 M/UL (4.20-5.40) L Hemoglobin 10.0 G/DL (12.0-16.0) L Hematocrit 31.1 % (37.0-47.0) L Mean Corpuscular Volume 92 FL (80-99) Mean Corpuscular Hemoglobin 29.8 PG (27.0-31.0) Mean Corpuscular Hemoglobin Concent 32.3 G/DL (32.0-36.0) Red Cell Distribution Width 11.9 % (11.6-14.8) Platelet Count 229 K/UL (150-450) Mean Platelet Volume 6.2 FL (6.5-10.1) L Neutrophils (%) (Auto) 59.5 % (45.0-75.0) Lymphocytes (%) (Auto) 23.1 % (20.0-45.0) Monocytes (%) (Auto) 10.4 % (1.0-10.0) H Eosinophils (%) (Auto) 6.0 % (0.0-3.0) H Basophils (%) (Auto) 1.1 % (0.0-2.0) Donald Vidal MD May 25, 2018 11:26
[2018-05-25] MEDS ORDERED: XARELTO10 MG ORAL (11:27)
--- NOTE | 2018-05-25 11:28 | Discharge Instructions ---
Discharge Instructions Discharge Instructions Special Instructions fu with dr morton as intructed see you primary md for adjustment of synthroid dose take xarelto daily for 30 more days to prevent blood clot form forming For Congestive Heart Failure Reminder Report to your physician any weight gain of 5 pounds or more in one week. Donald Vidal MD May 25, 2018 11:28
--- NOTE | 2018-05-25 11:30 | NUR ---
NURSE NOTES: DISCHARGE ORDER RECEIVED FROM DR. QUEVEDO AND SEEN BY DR. DORANTES WELL. HOME RX'S SENT VIA FAX TO [facility] PER PATIENT REQUEST. FAX RECEIVED AND FILLED WILL DELIVER MEDS TO PT'S HOME. LEFT HIP DRSG CHANGED UPON DISCHARGE. DISCUSSED AND GAVE INSTRUCTINS WITH PATIENT EDUCATION FOR HOME. ALL BELONGINGS REVIEWED AND PACKED FOR PATIENT. SENT HOME VIA AMBULANCE. REPORT GIVEN.
[2018-05-25 12:00] VITALS: BP 106/62
--- NOTE | 2018-05-25 21:00 | Operative Note - Dictated ---
DATE OF OPERATION: 05/25/2018 PREOPERATIVE DIAGNOSIS: Left hip end-stage osteoarthritis. POSTOPERATIVE DIAGNOSIS: Left hip end-stage osteoarthritis. PROCEDURE: Left total hip replacement. SURGEON: Gregory Amanda M.D. 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 FOAM CHARGER: None. PREOP NOTE: This is a pleasant lady who has been having issues with her hip, associated with pain. I explained to her the surgery and the risks being infection, bleeding, anesthetic risks, neurovascular damage, DVT, PE, and failure of the operation. The patient agreed. Consents were obtained. OPERATIVE ROOM NOTE: Under the benefit of endotracheal intubation and spinal anesthetic, the patient's hip was prepped and then draped in an appropriate manner. A posterior lateral incision was made after given antibiotics. I then proceeded to incise through subcutaneous tissue down through TFO 01:11 onto the capsule, removed the capsule. After removing the capsule, I then dislocated the hip. I cut the femoral head half a centimeter above the lesser troch. I then proceeded to work on the acetabulum. I started reaming with a 44 up to 53, excepting 54. The patient did well. I then placed in a 54 cup into 40 degrees of vertical inclination and 15 degrees of anteversion. I placed the stem in and I started reaming down, reamed down to #3, accepting #3 Jina stem. I then proceeded to place the actual with a ceramic head and a neutral liner. I irrigated the wound copiously closing the muscle with #1 Vicryl, subcutaneous tissue with 2-0 Vicryl, and skin with adrian. The patient went to recovery room in stable condition. There were no complications. Gregory Amanda M.D. DR: BJ JOB#: [id number] CC:
--- NOTE | 2018-05-27 14:02 | Discharge Summary ---
Discharge Summary Hospital Course Date of Admission May 21, 2018 at 06:02 Date of Discharge May 25, 2018 at 12:45 Admitting Diagnosis left hip end stage osteoarthritis Reason for Hospitalization: elective surgery DANNA Heredia is a 62 year old female who was admitted on May 21, 2018 at 06:02 for Left hip end stage osteoarthritis. Patient was admitted for elective surgery. Consultations Dr Vidal-IM/cardio Dr Fernandez -pain specialist Procedures s/p 05/25/2018 by Gregory Vázquez MD May 25, 2018 11:25 Left total hip replacement. Hospital Course status post surgery course of recovery uneventful initially IV fluids s/p perioperative antibiotics neurovascular status closely monitored, stable incision clean dry, and intact pain management addressed pain specialist followed; pain controlled hemodynamically stable ambulated with PT DVT prophylaxis provided patient will continue at home Xarelto for 30 days as prescribed use of incentive spirometry was encouraged while in the bed fall precautions maintained; safe for ambulation tolerated diet , IV fluids discontinued GI prophylaxis provided antiemetics were on board as needed voided freely bowel regimen instituted Levothyroxine was continued. patient was stable for discharge discharge instructions provided with emphasis on postoperative hip precaution follow up with surgeon as outpatient as advised by surgeon FINAL DIAGNOSES Left hip end-stage osteoarthritis. s/p Left total hip replacement History of breast cancer History of pelvic bone cancer Obesity Hypothyroidism Chronic constipation Discharge Medications New Medications: Rivaroxaban (Xarelto*) 10 Mg Tablet 10 MG ORAL DAILY for 30 Days, TAB Continued Medications: Letrozole (Femara) 2.5 Mg Tablet 2.5 MG ORAL DAILY, #10 TAB 0 Refills (This prescription has been renewed) Levothyroxine Sodium (Synthroid) 175 Mcg Tablet 175 MCG ORAL DAILY, TAB (This prescription has been renewed) Take in the morning on an empty stomach, at least 30 minutes before food. Palbociclib (Ibrance) 125 Mg Capsule 125 MG PO DA, CAP (This prescription has been renewed) Discharge Condition Upon Discharge: stable Discharge Disposition Patient was discharged to Home () Discharge Instructions Discharge Instructions Special Instructions I have been assigned to complete a D/C Summary on this account. I was not involved in the patient management Priscilla Banks NP May 27, 2018 14:02
== END 2018-05-25 12:45 | disposition home or self-care (01) | DRG 470 ==
LOC: SDSOVERFLO 06:02 → 3E 11:42
PROC: 0SRB04A Replacement of Left Hip Joint with Ceramic on Polyethylene Synthetic Substitute, Uncemented, Open Approach (ICD-10-PCS; principal; 2018-05-21 07:30)
DX: M16.12 Unilateral primary osteoarthritis, left hip (principal); C41.4 Malignant neoplasm of pelvic bones, sacrum and coccyx; Z85.3 Personal history of malignant neoplasm of breast; Z90.11 Acquired absence of right breast and nipple; E03.9 Hypothyroidism, unspecified; E66.9 Obesity, unspecified; Z68.34 Body mass index [BMI] 34.0-34.9, adult; K59.09 Other constipation
CPT/HCPCS: 36415; 72170; 73502; 80048; 84439; 84443; 85007; 85025; 85610; 85730; 86850; 86900; 86901; 86920; 87081; 94003; 94150; J2250; J2370; J2405; J2765